=== PATIENT | male | born 1995 | race Caucasian/White ===

== ENCOUNTER 2023-01-29 12:44 | Emergency (ER) | payer BC ==
[2023-01-29 13:02] VITALS: BP 124/72; O2SAT 98
--- NOTE | 2023-01-29 13:12 | ED Physician Documentation ---
PD HPI CHEST PAIN - Stated complaint Stated Complaint: CHEST PX - Chief complaint Chief Complaint: Trauma Ch/Bk - History obtained from History obtained from: Patient - Additional information Additional information: Patient is a 28-year-old male presenting for left-sided chest pain that has been present constantly for 1 week since a slip and fall. [place]. He did hit his chest against his arm as he fell. It has been hurting since then. He has not tried anything for the pain. He works at the [employer] and states that his work does require some movements that have been causing him some pain. He thought it would get better within the last week. He denies radiation of the pain elsewhere. He denies having pain prior to the fall and it started as soon as he fell. He denies feeling short of air. No fevers. No cough. Patient denies any medical history such as hypertension, hyperlipidemia, diabetes, family history of early coronary artery disease. Review of Systems Constitutional: denies: Fever Cardiac: reports: Chest pain / pressure Respiratory: denies: Dyspnea GI: denies: Abdominal Pain Neurologic: denies: Headache PD PAST MEDICAL HISTORY - Present Medications Home Medications: Ambulatory Orders Medication Instructions Recorded Confirmed No Known Home Medications 01/29/23 01/29/23 - Allergies Allergies/Adverse Reactions: Allergies Allergy/AdvReac Type Severity Reaction Status Date / Time No Known Drug Allergies Allergy Verified 01/29/23 12:49 PD ED PE NORMAL - General General: Alert and oriented X 3, No acute distress, Well developed/nourished - HEENT HEENT: Atraumatic - Neck Neck: Supple, no meningeal sign, No bony TTP - Cardiac Cardiac: RRR, No murmur, Strong equal pulses - Respiratory Respiratory: No respiratory distress, Clear bilaterally - Abdomen Abdomen: Soft, Non tender - Derm Derm: Warm and dry - Extremities Extremities: No deformity, No tenderness to palpate - Neuro Neuro: Normal speech PD ED PE EXPANDED - Visual Whole body visual: 1 - tenderness (No bruising, no swelling, no crepitus or rash) Results - Vitals Vitals: Vital Signs - 24 hr 01/29/23 12:49 Temperature 36.5 C Heart Rate 65 Respiratory 16 Rate Blood Pressure 124/72 O2 Saturation 98 Oxygen O2 Source Room air - EKG (time done) 1246 EKG releavant findings:: EKG personally interpreted by author of this note. Relevant findings are: Rate 63, normal sinus rhythm, no STEMI, QTc 419 Rate: Rate (enter#) (63) Rhythm: NSR Intervals: No: Prolonged QT Ischemia: No: ST elevation c/w ischemia Compare to prior EKG: Old EKG unavailable PD Medical Decision Making - ED course Complexity details: reviewed results, re-evaluated patient ED course: Patient is a 20-year-old male presenting for evaluation of chest pain after falling 1 week ago. He has no visible deformities or contusion noted on exam. He has good lung sounds. EKG was obtained at triage which is nonischemic. His symptoms are very atypical for ACS and again person with no risk factors and in the setting of known injury. A chest x-ray was obtained which I reviewed I see no pneumothorax or signs of rib injury. Patient has not tried anything for his pain and was counseled on trial of NSAIDs as well as limiting any movements that may exacerbate his pain. He declined a work note. Patient counseled on need [facility] as well as concerning symptoms to return for. Departure - Departure Disposition: 01 Home, Self Care Clinical Impression: Chest wall discomfort Condition: Stable Instructions: ED Contusion Chest Wall Follow-Up: ELAINE Obrien [Provider Group] Comments: Your chest x-ray is negative for signs of a broken rib or collapsed lung. I would recommend continuing with ice and also using the anti-inflammatory such as ibuprofen to help with your symptoms. If your symptoms are not improving in the next week I would recommend [facility]. Return to the ER if your symptoms worsen such as worsening pain, pain in new location, feeling short of breath or any new concerns. Forms: PCP List Discharge Date/Time: 01/29/23 13:35
--- NOTE | 2023-01-29 13:23 | XRAY Report ---
PROCEDURE: Chest 1 View X-Ray INDICATIONS: L sided CP TECHNIQUE: One view of the chest was acquired. COMPARISON: None. FINDINGS: Surgical changes and devices: None. Lungs and pleura: No pleural effusions or pneumothorax. Lungs are clear. Mediastinum: Mediastinal contours appear normal. Heart size is normal. Bones and chest wall: No suspicious bony lesions. Overlying soft tissues appear unremarkable. IMPRESSION: No acute cardiopulmonary process. Reviewed by: Josiah Farmer MD on 01/29/2023 12:22 PM JACE Approved by: Josiah Farmer MD on 01/29/2023 12:22 PM [facility] Station ID: [id number]
== END 2023-01-29 13:35 | disposition home or self-care (01) ==
LOC: ED 12:44
DX: R07.9 Chest pain, unspecified (principal); W19.XXXA Unspecified fall, initial encounter
CPT/HCPCS: 93005; 99283